=== PATIENT | female | born 1990 | race American Indian/Alaskan Native ===

== ENCOUNTER 2017-08-12 18:08 | Emergency (ER) | payer SELFPAY ==
[2017-08-12 19:33] VITALS: BP 120/80
== END 2017-08-12 20:15 | disposition left against medical advice (07) ==
LOC: ED 18:08
DX: R11.2 Nausea with vomiting, unspecified (principal); Z53.21 Procedure and treatment not carried out due to patient leaving prior to being seen by health care provider
CPT/HCPCS: 87116; 87430